=== PATIENT | female | born 1990 | race Caucasian/White ===

== ENCOUNTER → 2021-08-21 15:14 | Outpatient (BNVA) | payer MEDICAID, SELFPAY | PROVIDERS: Family Provider Nurse Practitioner; PCP Nurse Practitioner; Visit Provider Nurse Practitioner | DX: I10 Essential (primary) hypertension (principal); M10.9 Gout, unspecified; E04.9 Nontoxic goiter, unspecified | CPT/HCPCS: 80053; 80061; 84443; 84550 ==

== ENCOUNTER 2021-08-24 14:27 | Emergency (ER) | payer MEDICAID, SELFPAY ==
[2021-08-24] VITALS (7 sets, daily range): BP systolic 121–144; BP diastolic 70–87; PULSE 87–116; RESP 16–20; TEMP 37–37.9; O2SAT 94–98; BMI 42.0
--- NOTE | 2021-08-24 03:22 | XRR_ITS ---
PROCEDURE INFORMATION: Exam: XR Chest Exam date and time: 08/24/2021 3:22 AM Age: 31 years old Clinical indication: Patient HX: Fever. Maliase. TECHNIQUE: Imaging protocol: XR of the chest. Views: 1 view. COMPARISON: CT abdomen pelvis w con* [id number] 09/24/2019 8:45 PM FINDINGS: Lungs: Unremarkable. No consolidation. Pleural spaces: Unremarkable. No pleural effusion. No pneumothorax. Heart/Mediastinum: Unremarkable. No cardiomegaly. Bones/joints: Unremarkable. XR/XR chest 1V portable [id number] IMPRESSION: No acute findings. Radiation Dose CTDIVOL = (mGy): DLP = (mGy-cm)
[2021-08-24] MEDS: acetaminophen 325 mg Tablet 650 MG PO (15:38)
[2021-08-24] MEDS: sodium chloride 0.9% 1,000 ML 999 ML IV ×2 (15:39→18:15)
[2021-08-24 15:41] LABS: Basophils % 0.3 %; Eosinophils % 0.3 %; Hematocrit 41.9 % (37.0-47.0); Hemoglobin 13.6 g/dL (11.5-15.3); Lymphocytes # 1.6 10^3/uL (0.8-4.8); Lymphocytes % 20.1 %; Mean Corpuscular HGB Conc 32.5 g/dL (30.0-36.0); Mean Corpuscular Hemoglobin 28.3 pg (28.0-34.0); Mean Corpuscular Volume 87.3 fl (81-99); Mean Platelet Volume 9.3 fL (7.4-10.4); Monocytes # 0.3 10^3/uL (0.2-0.9); Neutrophils # 5.78 10^3/uL (1.8-7.7); Neutrophils % 74.9 %; Nucleated Red Blood Cells % 0 %; Platelet Count 301 10^3/cmm (130-400); Red Cell Distribution Width 14.3 % (12.1-15.1); White Blood Count 7.7 10^3/uL (4.0-10.0)
[2021-08-24 16:01] LABS: SARS Covid-2 Antigen Negative (Negative)
[2021-08-24 16:09] LABS: Alanine Aminotransferase 24 U/L (0-33); Albumin Level 4.3 g/dL (3.5-5.2); Alkaline Phosphatase 35 IU/L (35-105); Anion Gap 15.9 (5-19); Aspartate Amino Transferase 17 U/L (0-32); Blood Urea Nitrogen 9 mg/dL (6-20); C Reactive Protein 45.6 mg/L (0.0-4.9); Calcium 8.9 mg/dL (8.5-10.5); Carbon Dioxide 25 mmol/L (22-29); Chloride 99 mmol/L (98-107); Globulin 3.3 g/dL (1.3-4.6); Glomerular Filtration Rate 96.4 mL/min (90-130); Glucose 94 mg/dL (65-115); Osmolality Calculated 280 mOsm/kg (285-295); Potassium 3.9 mmol/L (3.5-5.1); Sodium 136 mmol/L (136-145); Total Bilirubin 0.3 mg/dL (0.15-1.2); Total Protein 7.6 g/dL (6.6-8.7)
--- NOTE | 2021-08-24 16:56 | W.ED.GENADLT ---
Documented by User: Jeannie Jim MD 08/24/21 18:53 HPI - General Adult General: Chief complaint: General Medical Stated complaint: HEAD FEELS LIKE FLOATING,EYE PAIN:NEW MED FRI Time Seen by Provider: 08/24/21 15:14 Source: patient Mode of arrival: ambulatory Limitations: no limitations History of Present Illness: HPI narrative: fever, body aches, chills, headache, eye pain , light headed since yesterday She was started on Valsartan in the last 3 days for HTN. Started having a fever last night. No sick contacts No recent outdoor activity or known tick bites. Denies urinary symptoms no rash no upper resp symptoms Associated symptoms: Reports headache(s); Deny chest pain, confusion, diaphoresis, dyspnea, nausea, rash, palpitations, syncope or vomiting Review of Systems General: Reports: 10 or more systems reviewed and unremarkable except in HPI and below Const: Reports: fever(s), chills, body aches and fatigue; Denies: change in weight, night sweats or diaphoresis Eyes: Reports: eye discomfort; Denies: change in vision, blurry vision, blind spots, photophobia, eye discharge or eye redness ENMT: Denies: throat pain, hoarseness, oral sores, ear or mastoid pain, tinnitus, disequilibrium, nasal congestion, post nasal drip or sinus pain Card: Reports: lightheadedness; Denies: chest pain, palpitations, irregular heart rhythm or syncope Resp: Denies: dyspnea, productive cough or wheezing GI: Denies: abdominal pain, nausea or vomiting : Denies: flank pain, difficulty voiding, dysuria or urinary frequency Musc: Reports: joint pain; Denies: neck pain, joint stiffness, limited range of motion, muscle cramps or muscle weakness Skin/Breast: Denies: rash, pruritus or erythema Neuro: Reports: headache(s) and dizziness; Denies: numbness in extremities, weakness in extremities, sensory changes, lack of coordination, frequent falls, confusion, behavioral changes, Slurred speech present, difficulty communicating thoughts or involuntary movements Psych: Denies: anxiety, depression or mood swings Endo: Denies: polyuria, polydipsia or tired all the time Miguel A/Lymph: Denies: easy bruising or easy bleeding All/Imm: Denies: throat swelling, tongue swelling or facial swelling PFSH ED PFSH: Medical History (Updated 08/24/21 @ 18:28 by Jeannie Jim MD) Essential hypertension Gestational diabetes mellitus Surgical History (Updated 08/21/21 @ 15:11 by MARTA Tucker) History of bilateral ligation of fallopian tubes 2014 Hx of section 2010, 2012, 2014 Hx of laparoscopy 2007 ovarian cyst Family History Grandmother Diabetes Denies family history of Clotting disorder Bleeding disorder Cancer Social History Smoking and tobacco status: current every day smoker cigarettes Packs smoked per day: 0.5 Years cigarettes smoked: 20 Second hand smoke exposure: No Smoking risk assessment/counseling performed?: Yes Alcohol intake: never Desire information about alcohol rehabilitation?: No Counseling given: No Desire information about substance/drug rehabilitation?: No Counseling given: No Adopted: No Caregiver/support person: No Lives independently: Yes Household members: children Housing: House Marital status: service: No Current occupational status: unemployed History of recent travel: No Current gender identity: Female Special doreen needs: No Agree to transfusion: Yes Female Reproductive History: Para: 3 Physical Exam Const: COMMON NORMALS: no acute distress, healthy appearing and alert EXAM LIMITATIONS: altered mental status GENERAL APPEARANCE: cooperative and well kempt; not in distress, not anxious, not lethargic and not ill appearing NUTRITIONAL APPEARANCE: overweight ORIENTATION/CONSCIOUSNESS: Yes awake, Yes oriented to person, Yes oriented to place and Yes oriented to time; not lethargic HENMT: COMMON NORMALS: normocephalic and atraumatic HEAD & SCALP: normocephalic and atraumatic FACE & SINUS: normal facial exam, sinuses nontender and face symmetric MOUTH: Normal oral and palatal mucosa present Eye: COMMON NORMALS: Equal, round and reactive pupils present, EOMs intact bilaterally, conjunctivae normal and no scleral icterus GENERAL EYE: appearance normal, both eyes and all related structures ALIGNMENT: Yes alignment normal PERIORBITAL: periorbital findings normal EYELID: eyelids normal CONJUNCTIVA: Yes conjunctivae normal SCLERA: sclerae normal PUPIL: Yes Equal, round and reactive pupils present EOM: Yes EOM abnormal Neck/C-Spine: COMMON NORMALS: no JVD GENERAL: Yes trachea midline, No anterior neck swelling, No lymphadenopathy, No tender, No submandibular swelling and No Meningeal signs present CERVICAL SPINE: Yes cervical ROM normal Lymph: LYMPHATIC: no lymphadenopathy noted Resp: COMMON NORMALS: normal respiratory effort, No retractions and No use of accessory muscles EFFORT & INSPECTION: Yes able to speak in complete sentences Cardio: COMMON NORMALS: no JVD and regular rhythm RATE: tachycardic RHYTHM: regular rhythm GI: COMMON NORMALS: Soft to palpation INSPECTION: Yes normal to inspection, No Abdominal wall edema and No abdominal distension PALPATION: Yes Soft to palpation and No Tenderness to palpation present (GI) Extremity: GENERAL: Yes normal exam except as noted Neuro: ISRA COMA SCALE: document GCS findings [place] coma scale eye opening: Spontaneous Isra coma scale verbal response: Orientated Isra coma scale motor response: Obey commands Isra coma scale total score: 15 SENSORIUM/ORIENTATION: Yes alert, Yes oriented to person, Yes oriented to place, Yes oriented to time and No lethargic SPEECH: speech normal Psych: COMMON NORMALS: mental status grossly normal, Normal thought process present, cooperative, normal affect, speech normal and activity/motor behavior normal APPEARANCE: Yes well kempt SPEECH: Yes normal speech THOUGHT PROCESS: Normal thought process present Skin: COMMON NORMALS: no rashes or lesions noted, turgor normal, no jaundice, no petechiae and no mottling GENERAL SKIN EXAM: no rashes or lesions noted and turgor normal Course Vital Signs: Vital signs: Vital Signs Temperature 98.6 F 08/24/21 19:00 Pulse Rate 98 08/24/21 19:03 Respiratory Rate 18 08/24/21 19:03 Blood Pressure 130/87 08/24/21 19:03 Pulse Oximetry 97 08/24/21 19:03 MDM - General Adult MDM Narrative: Medical decision making narrative: 31 year old with dizziness, headache, fever, general malaise and flu like symptoms for 1 day temp 100.4 on arrival, No meningeal signs Normal CBC and CMP, CRP slightly elevated in the 40s. COVID-19 negative Tick panel sent if UA negative, will plan to treat empirically for tickborne illness until results are back. Differential Diagnosis: Differential Diagnosis: sepsis, tickborne illness, meningitis, COVID-19, viral syndrome, Toxic shock syndrome, medication reaction, Medical Records: Attestation: I reviewed the patient's medical records. Lab Data: Attestation: I reviewed the patient's lab results. Labs: Lab Results 08/24/21 08/24/21 08/24/21 15:30 15:30 15:30 WBC 7.7 10^3/uL 10^3/ uL (4.0-10.0) RBC 4.80 10^6/uL 10^6 /uL (4.1-5.3) Hgb 13.6 g/dL g/dL (11.5-15.3) Hct 41.9 % % (37.0-47.0) MCV 87.3 fl fl (81-99) MCH 28.3 pg pg (28.0-34.0) MCHC 32.5 g/dL g/dL (30.0-36.0) RDW 14.3 % % (12.1-15.1) Plt Count 301 10^3/cmm 10^3 /cmm (130-400) MPV 9.3 fL fL (7.4-10.4) Neut % (Auto) 74.9 % % Lymph % (Auto) 20.1 % % Spencer % (Auto) 4.0 % % Eos % (Auto) 0.3 % % Baso % (Auto) 0.3 % % Neut # (Auto) 5.78 10^3/uL 10^3 /uL (1.8-7.7) Lymph # (Auto) 1.6 10^3/uL 10^3/ uL (0.8-4.8) Spencer # (Auto) 0.3 10^3/uL 10^3/ uL (0.2-0.9) Eos # (Auto) 0.0 10^3/uL 10^3/ uL (0.0-0.8) Baso # (Auto) 0.0 10^3/uL 10^3/ uL (0.0-0.1) Nucleated RBC % (a uto) 0 % % Nucleated RBCs # 0.0 /100WBC /100W BC Sodium 136 mmol/L mmol/L (136-145) Potassium 3.9 mmol/L mmol/L (3.5-5.1) Chloride 99 mmol/L mmol/L (98-107) Carbon Dioxide 25 mmol/L mmol/L (22-29) Anion Gap 15.9 (5-19) BUN 9 mg/dL mg/dL (6-20) Creatinine 0.7 mg/dL mg/dL (0.5-0.9) GFR Calculation 96.4 mL/min mL/mi n (90-130) Glucose 94 mg/dL mg/dL (65-115) Calculated Osmolal ity 280 mOsm/kg L mOs m/kg (285-295) Calcium 8.9 mg/dL mg/dL (8.5-10.5) Total Bilirubin 0.3 mg/dL mg/dL (0.15-1.2) AST 17 U/L U/L (0-32) ALT 24 U/L U/L (0-33) Alkaline Phosphata se 35 IU/L IU/L (35-105) C-Reactive Protein 45.6 mg/L H mg/L (0.0-4.9) Total Protein 7.6 g/dL g/dL (6.6-8.7) Albumin 4.3 g/dL g/dL (3.5-5.2) Globulin 3.3 g/dL g/dL (1.3-4.6) Urine Color Urine Appearance Urine pH Ur Specific Gravit y Urine Protein Urine Glucose (UA) Urine Ketones Urine Blood Urine Nitrate Urine Bilirubin Urine Urobilinogen Ur Leukocyte Camilla ase SARS-CoV-2 Ag (Rap id) Negative (Negative) 08/24/21 18:16 WBC RBC Hgb Hct MCV MCH MCHC RDW Plt Count MPV Neut % (Auto) Lymph % (Auto) Spencer % (Auto) Eos % (Auto) Baso % (Auto) Neut # (Auto) Lymph # (Auto) Spencer # (Auto) Eos # (Auto) Baso # (Auto) Nucleated RBC % (a uto) Nucleated RBCs # Sodium Potassium Chloride Carbon Dioxide Anion Gap BUN Creatinine GFR Calculation Glucose Calculated Osmolal ity Calcium Total Bilirubin AST ALT Alkaline Phosphata se C-Reactive Protein Total Protein Albumin Globulin Urine Color Yellow (Yellow) Urine Appearance Clear (CLEAR) Urine pH 5 (5-7) Ur Specific Gravit y 1.005 (1.005-1.030) Urine Protein Neg (Negative) Urine Glucose (UA) Norm (Normal) Urine Ketones 1+ H (Negative) Urine Blood Neg (Negative) Urine Nitrate Negative (Negative) Urine Bilirubin Neg (Negative) Urine Urobilinogen Norm mg/dL mg/dL (Negative) Ur Leukocyte Camilla ase Negative (Negative) SARS-CoV-2 Ag (Rap id) Discharge Plan Discharge Patient Disposition: Home Clinical Impression: Fever Qualifiers: Fever type: unspecified Qualified Code(s): R50.9 - Fever, unspecified Condition: Stable Prescriptions: New doxycycline hyclate 100 mg capsule 100 mg PO BID 10 Days Qty: 20 RF: 0 No Action valsartan [Diovan] 80 mg tablet 80 mg PO DAILY Qty: 30 RF: 0 Discharge Orders: Discharge ED (Routine); Ordered 08/24/21 Ordered By: Young Serna Referrals: Anuj Rick FNP-C [Primary Care Provider] - 1-3 days Discharge Diet: Advance as tolerated Discharge Activity: Increase activity as tolerated Patient Instructions: Fever in Adults (ED) Activity Restrictions/Additional Instructions: Antibiotics as directed until your tick panel comes back negative. You should quarantine at home until the final results of your COVID-19 test are returned and negative. Return for continued fever despite antibiotics, vomiting liquids or medications, shortness of breath, any other concerning symptoms. Coding Level of Care Code ED Optical Effects Layout Person for Chg Fwd Exam Comprehensive Documented by User: Young Serna DO 08/24/21 19:17 HPI - General Adult General: Chief complaint: General Medical Stated complaint: HEAD FEELS LIKE FLOATING,EYE PAIN:NEW MED FRI Time Seen by Provider: 08/24/21 15:14 PFSH ED PFSH: Medical History (Updated 08/24/21 @ 18:28 by Jeannie Jim MD) Essential hypertension Gestational diabetes mellitus Surgical History (Updated 08/21/21 @ 15:11 by MARTA Tucker) History of bilateral ligation of fallopian tubes 2014 Hx of section 2010, 2012, 2014 Hx of laparoscopy 2007 ovarian cyst Family History Grandmother Diabetes Denies family history of Clotting disorder Bleeding disorder Cancer Social History Smoking and tobacco status: current every day smoker cigarettes Packs smoked per day: 0.5 Years cigarettes smoked: 20 Second hand smoke exposure: No Smoking risk assessment/counseling performed?: Yes Alcohol intake: never Desire information about alcohol rehabilitation?: No Counseling given: No Desire information about substance/drug rehabilitation?: No Counseling given: No Adopted: No Caregiver/support person: No Lives independently: Yes Household members: children Housing: House Marital status: service: No Current occupational status: unemployed History of recent travel: No Current gender identity: Female Special doreen needs: No Agree to transfusion: Yes Course Vital Signs: Vital signs: Vital Signs Temperature 98.6 F 08/24/21 19:00 Pulse Rate 98 08/24/21 19:03 Respiratory Rate 18 08/24/21 19:03 Blood Pressure 130/87 08/24/21 19:03 Pulse Oximetry 97 08/24/21 19:03 MDM - General Adult MDM Narrative: Medical decision making narrative: 31-year-old female checked out to me by Dr. Jim at shift change. This is a fever, essentially of unknown origin. Her urinalysis is negative as well. Chest x-ray is negative. Laboratory is benign save mild to moderate elevation in CRP. COVID-19 PCR will be completed, as she is only had a fever for a day, and could be missed by rapid testing. We will cover with doxycycline for tickborne illness as this is a concern. She knows to return for worsening symptoms Lab Data: Labs: Lab Results 08/24/21 08/24/21 08/24/21 15:30 15:30 15:30 WBC 7.7 10^3/uL 10^3/ uL (4.0-10.0) RBC 4.80 10^6/uL 10^6 /uL (4.1-5.3) Hgb 13.6 g/dL g/dL (11.5-15.3) Hct 41.9 % % (37.0-47.0) MCV 87.3 fl fl (81-99) MCH 28.3 pg pg (28.0-34.0) MCHC 32.5 g/dL g/dL (30.0-36.0) RDW 14.3 % % (12.1-15.1) Plt Count 301 10^3/cmm 10^3 /cmm (130-400) MPV 9.3 fL fL (7.4-10.4) Neut % (Auto) 74.9 % % Lymph % (Auto) 20.1 % % Spencer % (Auto) 4.0 % % Eos % (Auto) 0.3 % % Baso % (Auto) 0.3 % % Neut # (Auto) 5.78 10^3/uL 10^3 /uL (1.8-7.7) Lymph # (Auto) 1.6 10^3/uL 10^3/ uL (0.8-4.8) Spencer # (Auto) 0.3 10^3/uL 10^3/ uL (0.2-0.9) Eos # (Auto) 0.0 10^3/uL 10^3/ uL (0.0-0.8) Baso # (Auto) 0.0 10^3/uL 10^3/ uL (0.0-0.1) Nucleated RBC % (a uto) 0 % % Nucleated RBCs # 0.0 /100WBC /100W BC Sodium 136 mmol/L mmol/L (136-145) Potassium 3.9 mmol/L mmol/L (3.5-5.1) Chloride 99 mmol/L mmol/L (98-107) Carbon Dioxide 25 mmol/L mmol/L (22-29) Anion Gap 15.9 (5-19) BUN 9 mg/dL mg/dL (6-20) Creatinine 0.7 mg/dL mg/dL (0.5-0.9) GFR Calculation 96.4 mL/min mL/mi n (90-130) Glucose 94 mg/dL mg/dL (65-115) Calculated Osmolal ity 280 mOsm/kg L mOs m/kg (285-295) Calcium 8.9 mg/dL mg/dL (8.5-10.5) Total Bilirubin 0.3 mg/dL mg/dL (0.15-1.2) AST 17 U/L U/L (0-32) ALT 24 U/L U/L (0-33) Alkaline Phosphata se 35 IU/L IU/L (35-105) C-Reactive Protein 45.6 mg/L H mg/L (0.0-4.9) Total Protein 7.6 g/dL g/dL (6.6-8.7) Albumin 4.3 g/dL g/dL (3.5-5.2) Globulin 3.3 g/dL g/dL (1.3-4.6) Urine Color Urine Appearance Urine pH Ur Specific Gravit y Urine Protein Urine Glucose (UA) Urine Ketones Urine Blood Urine Nitrate Urine Bilirubin Urine Urobilinogen Ur Leukocyte Camilla ase SARS-CoV-2 Ag (Rap id) Negative (Negative) 08/24/21 18:16 WBC RBC Hgb Hct MCV MCH MCHC RDW Plt Count MPV Neut % (Auto) Lymph % (Auto) Spencer % (Auto) Eos % (Auto) Baso % (Auto) Neut # (Auto) Lymph # (Auto) Spencer # (Auto) Eos # (Auto) Baso # (Auto) Nucleated RBC % (a uto) Nucleated RBCs # Sodium Potassium Chloride Carbon Dioxide Anion Gap BUN Creatinine GFR Calculation Glucose Calculated Osmolal ity Calcium Total Bilirubin AST ALT Alkaline Phosphata se C-Reactive Protein Total Protein Albumin Globulin Urine Color Yellow (Yellow) Urine Appearance Clear (CLEAR) Urine pH 5 (5-7) Ur Specific Gravit y 1.005 (1.005-1.030) Urine Protein Neg (Negative) Urine Glucose (UA) Norm (Normal) Urine Ketones 1+ H (Negative) Urine Blood Neg (Negative) Urine Nitrate Negative (Negative) Urine Bilirubin Neg (Negative) Urine Urobilinogen Norm mg/dL mg/dL (Negative) Ur Leukocyte Camilla ase Negative (Negative) SARS-CoV-2 Ag (Rap id) Discharge Plan Discharge Patient Disposition: Home Clinical Impression: Fever Qualifiers: Fever type: unspecified Qualified Code(s): R50.9 - Fever, unspecified Condition: Stable Prescriptions: New doxycycline hyclate 100 mg capsule 100 mg PO BID 10 Days Qty: 20 RF: 0 No Action valsartan [Diovan] 80 mg tablet 80 mg PO DAILY Qty: 30 RF: 0 Discharge Orders: Discharge ED (Routine); Ordered 08/24/21 Ordered By: Young Serna Referrals: Anuj Rick FNP-C [Primary Care Provider] - 1-3 days Discharge Diet: Advance as tolerated Discharge Activity: Increase activity as tolerated Patient Instructions: Fever in Adults (ED) Activity Restrictions/Additional Instructions: Antibiotics as directed until your tick panel comes back negative. You should quarantine at home until the final results of your COVID-19 test are returned and negative. Return for continued fever despite antibiotics, vomiting liquids or medications, shortness of breath, any other concerning symptoms. Coding Level of Care Code ED Optical Effects Layout Person for [place] Exam Comprehensive
[2021-08-24 18:21] LABS: Add Urine Microscopic? NO; Charge for UA Resulting for Rev
[2021-08-24 18:56] LABS: Bilirubin Urine Neg (Negative); Blood Urine Neg (Negative); Glucose Urine UA Norm (Normal); Ketones Urine 1+ (Negative); Leukocyte Esterase Urine Negative (Negative); Nitrate Urine Negative (Negative); Protein Urine Neg (Negative); Specific Gravity, Urine 1.005 (1.005-1.030); Urine Appearance Clear (CLEAR); Urine Color Yellow (Yellow); Urobilinogen Urine Norm (Negative); pH Urine 5 (5-7)
[2021-08-26 08:37] LABS: Coronavirus Test Green County Not Detected
[2021-08-26 13:18] LABS: Lyme AB Screen <0.90 index
--- NOTE | 2021-08-26 16:37 | PC.NURSE ---
Left Voice mail.
[2021-08-27 16:28] LABS: E. Chaffeensis AB IGG <1:64; E. Chaffeensis AB IGM <1:20
[2021-08-27 17:18] LABS: RMSF IGG NOT DETECTED; RMSF IGM NOT DETECTED
== END 2021-08-24 19:45 | disposition home or self-care (01) ==
PROVIDERS: Family Medicine; Emergency Provider Emergency Medicine; PCP Nurse Practitioner
DX: R51.9 Headache, unspecified (principal); R50.9 Fever, unspecified; F17.210 Nicotine dependence, cigarettes, uncomplicated; I10 Essential (primary) hypertension
CPT/HCPCS: 71045; 80053; 81003; 85025; 86140; 86618; 86666; 86757; 87426; 87635; 96360; 96361; 99283; J7030

== ENCOUNTER 2021-11-12 10:00 | Outpatient (CLI) | payer OTHER, MEDICAID, SELFPAY ==
--- NOTE | 2021-11-12 10:34 | XR_ITS ---
WS: [id number] LUMBAR SPINE: 3 VIEWS TECHNIQUE: AP, lateral and L5-S1 spot. HISTORY: M54.42 - Lumbago with sciatica, left side COMPARISON: None available. Lumbar vertebra are normally aligned. Small osteophytes along the endplates of the vertebral bodies. No loss of disc space or vertebral body height. Slight widening and possible early erosions involving the SI joints. Prior cholecystectomy. XR/XR lumbar spine 2-3V* [id number] IMPRESSION: 1. Very slight widening of the SI joints bilaterally. Early findings of sacroi liitis should be considered. 2. No lumbar spine fracture.
--- NOTE | 2021-11-12 10:34 | XR_ITS ---
WS: [id number] LEFT HIP HISTORY: M25.552 - Pain in left hip COMPARISON: None available. LEFT hip: No acute fracture or dislocation. . Slight narrowing of the hip joint with an osteophyte al christina the lateral superior acetabulum. No subchondral cystic changes. Visualized pubic rami are normal. XR/XR hip LT 2-3V wo/w pel* [id number] IMPRESSION: 1. No hip fracture. 2. Very minimal osteophytic ridging upon the superior acetabulum.
== END 2021-11-12 10:01 | disposition home or self-care (01) ==
PROVIDERS: PCP Nurse Practitioner; Visit Provider Nurse Practitioner Family
DX: M54.42 Lumbago with sciatica, left side (principal); M25.552 Pain in left hip
CPT/HCPCS: 72100; 73502

== ENCOUNTER → 2022-08-13 15:28 | Outpatient (BNVA) | payer MEDICAID, SELFPAY | PROVIDERS: PCP Nurse Practitioner; Visit Provider Nurse Practitioner | DX: R73.9 Hyperglycemia, unspecified (principal); I10 Essential (primary) hypertension; E78.2 Mixed hyperlipidemia; E66.01 Morbid (severe) obesity due to excess calories; L30.9 Dermatitis, unspecified | CPT/HCPCS: 80053; 80061; 81000; 83036; 84443; 85025 ==

== ENCOUNTER → 2023-05-11 09:50 | Outpatient (BNVA) | payer MEDICAID, SELFPAY | PROVIDERS: PCP Nurse Practitioner; Visit Provider Nurse Practitioner Family | DX: R73.03 Prediabetes (principal); M54.9 Dorsalgia, unspecified | CPT/HCPCS: 80053; 80061; 82306; 82607; 83036; 83735; 84439; 84443; 85025 ==

== ENCOUNTER → 2023-05-26 10:53 | Outpatient (BNVA) | payer MEDICAID, SELFPAY | PROVIDERS: PCP Nurse Practitioner; Visit Provider Nurse Practitioner Family | DX: M54.6 Pain in thoracic spine (principal); M54.50 Low back pain, unspecified | CPT/HCPCS: 72072; 72100 ==

== ENCOUNTER 2023-07-28 13:00 | Outpatient (CLI) | payer MEDICAID, SELFPAY | END 2023-07-28 13:01 | disposition home or self-care (01) | LOC: SLEEP 07-29 14:10 | PROVIDERS: PCP Nurse Practitioner; Visit Provider Nurse Practitioner Family | DX: G47.33 Obstructive sleep apnea (adult) (pediatric) (principal); G47.36 Sleep related hypoventilation in conditions classified elsewhere; G47.10 Hypersomnia, unspecified | CPT/HCPCS: G0399 ==

== ENCOUNTER → 2023-08-05 10:00 | Outpatient (BNVA) | payer MEDICAID, SELFPAY | PROVIDERS: PCP Nurse Practitioner; Visit Provider Nurse Practitioner Family | DX: I10 Essential (primary) hypertension (principal); M79.10 Myalgia, unspecified site; E78.2 Mixed hyperlipidemia; M54.9 Dorsalgia, unspecified; E11.69 Type 2 diabetes mellitus with other specified complication; E66.9 Obesity, unspecified; E55.9 Vitamin D deficiency, unspecified; R60.9 Edema, unspecified | CPT/HCPCS: 80053; 80061; 82306; 83036; 83735; 83880; 84443; 85025 ==

== ENCOUNTER 2023-08-18 08:55 | Outpatient (CLI) | payer MEDICAID, SELFPAY ==
--- NOTE | 2023-08-18 09:30 | USCV_ITS ---
Argentina Rojas Age: 33 Gender: F : 1990 Exam Date: 08/18/2023 09:18 Ordering Phys: Louise Rodarte [employer] SUPERVISOR [employer] SUPERVISOR Technologist: CT [place] [facility] [place]: HISTORY: PROCEDURES: FINDINGS: No evidence of DVT seen in any vessel visualized at this time. No significant venous reflux Normal caliber veins bilaterally CONCLUSIONS 1. No evidence of DVT in the above-mentioned identifiable veins. 2. No significant venous reflux either in the deep or in the superficial veins. 3. Normal caliber veins bilaterally Dr Rich Schmidt MD [facility] (Electronically Signed) Final Date: 20 August 2023 11:26 S
== END 2023-08-18 08:56 | disposition home or self-care (01) ==
LOC: RAD 08:56
PROVIDERS: PCP Nurse Practitioner; Visit Provider Nurse Practitioner Family
DX: R60.9 Edema, unspecified (principal)
CPT/HCPCS: 93970

== ENCOUNTER → 2023-08-23 14:02 | Outpatient (BNVA) | payer MEDICAID, SELFPAY | PROVIDERS: PCP Nurse Practitioner Family; Visit Provider Nurse Practitioner Family | DX: E11.69 Type 2 diabetes mellitus with other specified complication (principal); E66.9 Obesity, unspecified | CPT/HCPCS: 83036 ==

== ENCOUNTER → 2024-02-08 09:22 | Outpatient (BNVA) | payer MEDICAID, SELFPAY | PROVIDERS: PCP Nurse Practitioner Family; Visit Provider Nurse Practitioner Family | DX: I10 Essential (primary) hypertension (principal); E11.69 Type 2 diabetes mellitus with other specified complication; E66.9 Obesity, unspecified; E55.9 Vitamin D deficiency, unspecified | CPT/HCPCS: 80053; 80061; 82306; 83036; 83735; 85025 ==

== ENCOUNTER → 2024-06-01 10:59 | Outpatient (BNVA) | payer MEDICAID, SELFPAY | PROVIDERS: PCP Nurse Practitioner Family; Visit Provider Family Medicine | DX: J02.9 Acute pharyngitis, unspecified (principal) | CPT/HCPCS: 87880 ==

== ENCOUNTER → 2024-08-28 14:21 | Outpatient (BNVA) | payer MEDICAID, SELFPAY | PROVIDERS: PCP Nurse Practitioner Family; Visit Provider Nurse Practitioner Family | DX: E55.9 Vitamin D deficiency, unspecified (principal); M25.561 Pain in right knee; E11.65 Type 2 diabetes mellitus with hyperglycemia; E11.69 Type 2 diabetes mellitus with other specified complication; E66.9 Obesity, unspecified; M25.761 Osteophyte, right knee | CPT/HCPCS: 73562; 80053; 80061; 82306; 82607; 83036; 83735; 84443; 85025; 85651; 86038; 86140; 86200; 86431 ==

== ENCOUNTER 2025-06-14 21:49 | Emergency (ER) | payer SELFPAY ==
[2025-06-14 21:57] VITALS: BP 175/93; PULSE 97; RESP 17; TEMP 36.8; O2SAT 98; BMI 46.9
[2025-06-14 23:56] LABS: Hematocrit 30.0 % (36-47); Hemoglobin 8.80 g/dL (11.27-16.99); Mean Corpuscular HGB Conc 29.3 g/dL (30-55); Mean Corpuscular Hemoglobin 21.8 pg (27-33); Mean Corpuscular Volume 74.3 fl (85-98); Nucleated Red Blood Cells % 0 %; Platelet Count 307 10^3/cmm (157-399); Red Blood Count 4.04 10^6/uL (3.85-5.65); White Blood Count 8.45 10^3/uL (3.29-11.43)
[2025-06-15 00:13] LABS: Alanine Aminotransferase 36 U/L (0-33); Albumin Level 4.0 g/dL (3.5-5.2); Alkaline Phosphatase 35 U/L (35-105); Anion Gap 18.1 (5-19); Aspartate Amino Transferase 34 U/L (0-32); Blood Urea Nitrogen 18 mg/dL (6-20); Calcium 9.7 mg/dL (8.5-10.5); Carbon Dioxide 22 mmol/L (22-29); Chloride 102 mmol/L (98-107); Creatinine Clr Calc Pharmacy 162.6486; Globulin 3.0 g/dL (1.3-4.6); Glucose 249 mg/dL (65-115); Osmolality Calculated 296 mOsm/kg (285-295); Potassium 4.1 mmol/L (3.5-5.1); Sodium 138 mmol/L (136-145); Total Protein 7.0 g/dL (6.6-8.7)
[2025-06-15 01:00] VITALS: BP 132/77; PULSE 93; RESP 15; O2SAT 96
[2025-06-15 01:05] LABS: Glucose Urine UA 1+ (Normal); Nitrate Urine Negative (Negative); Specific Gravity, Urine 1.030 (1.005-1.030)
[2025-06-15 01:22] LABS: Add Urine Microscopic? YES
[2025-06-15 02:00] VITALS: BP 124/71; PULSE 79; RESP 17; O2SAT 97
[2025-06-15 03:00] VITALS: BP 144/82; PULSE 85; RESP 16; O2SAT 99
--- NOTE | 2025-06-15 03:05 | CTR_ITS ---
PROCEDURE INFORMATION: Exam: CT Head Without Contrast Exam date and time: 06/15/2025 3:15 AM Age: 34 years old Clinical indication: Dizziness and other: Headache; Additional info: Headache, dizziness TECHNIQUE: Imaging protocol: Computed tomography of the head without contrast. Radiation optimization: All CT scans at this facility use at least one of these dose optimization techniques: automated exposure control; mA and/or kV adjustment per patient size (includes targeted exams where dose is matched to clinical indication); or iterative reconstruction. COMPARISON: No relevant prior studies available. RADIATION DOSE METRICS: Total DLP (mGy-cm): 1197.91 FINDINGS: Brain: Normal. No hemorrhage. Unremarkable white matter. No mass effect. Cerebral ventricles: No ventriculomegaly. Paranasal sinuses: Visualized sinuses are unremarkable. No fluid levels. Mastoid air cells: Visualized mastoid air cells are well aerated. Bones: Unremarkable. No acute fracture. Soft tissues: Unremarkable. CT/CT head wo con* [id number] IMPRESSION: There is no evidence of acute intracranial abnormality.
[2025-06-15 04:00] VITALS: BP 118/88; PULSE 72; RESP 18; O2SAT 98
[2025-06-15 05:00] VITALS: BP 113/68; PULSE 92; RESP 17; O2SAT 96
--- NOTE | 2025-06-15 05:42 | ED_ITS ---
HPI - Dizziness 2 General: Chief Complaint: Dizziness Stated Complaint: Dizziness, Headache Time Seen by Provider: 06/15/25 01:40 History of Present Illness: HPI Narrative: 34-yo female with long-standing untreate d HTN presents for acute dizziness that began earlier today. She describes a spinning sensation associated with 7/10 sharp pain at the back of the head/upper neck that worsened with gentle head rotation and provoked nausea. She could not ambulate at home because BP was so high. On ED arrival symptoms had improved: pain 2/10, no current vertigo unless tested. She denies syncope, focal neurologic deficits, recent ear/sinus infection, cough, alcohol use, or tobacco. She recognizes prodromal sensations of elevated BP from prior episodes. No prior stroke or cardiac disease. Related Data Previous Rx's ?Medication ?Instructions ?Recorded auto-titrating c-pap 6-16cm #1 ea 02/08/24 magnesium oxide 800 mg (2 x 400 mg magnesium ) PO 08/04/24 .with evening meal #180 tabs methylprednisolone 4 mg tablets in See Rx Instructions PO PER PKG DIR 08/28/24 a dose pack (Medrol (David)) #21 ea bupropion HCl 150 mg tablet,12 hr 150 mg PO BID #60 ta bs 04/17/25 sustained-release (Wellbutrin SR) dapagliflozin propanediol 10 mg 10 mg PO DAILY #30 tab s 04/17/25 tablet (Farxiga) diclofenac sodium 75 mg 75 mg PO BID PRN pain #60 ta bs 04/17/25 tablet,delayed release escitalopram oxalate 10 mg tablet 10 mg PO DAILY #30 t abs 04/17/25 (Lexapro) omeprazole 20 mg capsule,delayed See Rx Instructions . Route 04/17/25 release .COMPLEX #60 caps rosuvastatin 10 mg tablet (Crestor) 10 mg PO DAILY #30 tabs 04/17/25 tizanidine 4 mg tablet 4 mg PO BID muscle spasticit y #60 04/17/25 tabs valsartan 160 mg tablet (Diovan) 160 mg PO DAILY #30 t abs 04/17/25 Allergies Allergy/AdvReac Type Severity Reaction Status Date / Time No Known Allergies Allergy Verified 06/01/24 10:35 [facility] ED 2 [facility]: Medical History (Updated 06/15/25 @ 05:41 by Jeronimo Eric MD) Type 2 diabetes mellitus Obesity, Class III, BMI 40-49.9 (morbid obesity) Hyperlipidemia, mixed Essential hypertension Gestational diabetes mellitus Surgical History Hx of laparoscopy 2006 ovarian cyst History of bilateral ligation of fallopian tubes 2014 Hx of section 2010, 2012, 2014 Family History Grandmother Diabetes Denies family history of Clotting disorder Bleeding disorder Cancer Social History Smoking and tobacco/nicotine status: never used tobacco/nicotine Second hand smoke exposure: No Alcohol intake: never Substance/Drug Use: unknown Adopted: No Caregiver/support person: No Lives independently: Yes Household members: children Housing: House Marital status: service: No Current occupational status: employed Current occupation: [employer] Do you think of yourself as: Straight/Heterosexual Current gender identity: Female Special doreen needs: No Agree to transfusion: Yes Female Reproductive History: Para: 3 Physical Exam 2 Const: COMMON NORMALS: no acute distress, patient oriented x3 and alert HENMT: COMMON NORMALS: normocephalic and atraumatic HEAD & SCALP: n ormocephalic and atraumatic OTHER: Dizziness previously was worse with head motion but at the time of my exam this has resolved and she is able to move her head vigorously without increase in symptoms. Eye: COMMON NORMALS: Equal, round and reactive pupils present, EOMs intact bilaterally and no scleral icterus PUPIL: Yes Equal, round and reactive pupils present Resp: COMMON NORMALS: normal respiratory effort and No retractions Cardio: COMMON NORMALS: regular rate, regular rhythm and No murmurs present (Cardio) RATE: regular rate RHYTHM: regular rhythm GI: COMMON NORMALS: Normal to inspection, nondistended, normoactive bowel sounds present, Soft to palpation and non-tender PALPATION: Yes Soft to palpation Neuro: COMMON NORMALS: patient oriented x3 SENSORIUM/ORIENTATION: Yes alert Skin: COMMON NORMALS: no rashes or lesions noted GENERAL SKIN EXAM: no rashes or lesions noted Course 2 Vital Signs: Vital signs: Vital Signs Temperature 98.3 F 06/14/25 21:57 Pulse Rate 72 06/15/25 04:00 Respiratory Rate 18 06/15/25 04:00 Blood Pressure 118/88 06/15/25 04:00 Pulse Oximetry 98 06/15/25 04:00 Oxygen Delivery Me thod Room Air 06/14/25 21:57 MDM - Dizziness Medical Decision Making In summary, patient is a well-appearing 34-year-old female seen for an episode of vertigo and headache, both of which have resolved spontaneously. CT brain shows nothing acute. Labs are unremarkable. She will be discharged in stable and improved condition follow-up with primary care as needed. Lab Data 06/14/25 23:46 06/14/25 23:[address] 06/15/25 03:05 IMPRESSION: There is no evidence of acute intracranial abnormality. Laboratory Results WBC 8.45 10^3/uL (3.29-11.43) 06/14/25 23:46 RBC 4.04 10^6/uL (3.85-5.65) 06/14/25 23:46 Hgb 8.80 g/dL (11.27-16.99) L 06/14/25 23:46 Hct 30.0 % (36-47) L 06/14/25 23:46 MCV 74.3 fl (85-98) L 06/14/25 23:46 MCH 21.8 pg (27-33) L 06/14/25 23:46 MCHC 29.3 g/dL (30-55) L 06/14/25 23:46 RDW 17.3 % (12.1-15.1) H 06/14/25 23:46 Plt Count 307 10^3/cmm (157-399) 06/14/25 23:46 MPV 9.1 fL (7.4-10.4) 06/14/25 23:46 Neut % (Auto) 57.0 % 06/14/25 23:46 Lymph % (Auto) 33.4 % 06/14/25 23:46 [place] % (Auto) 5.7 % 06/14/25 23:46 Eos % (Auto) 2.8 % 06/14/25 23:46 Baso % (Auto) 0.4 % 06/14/25 23:46 Neut # (Auto) 4.82 10^3/uL (1.8-7.7) 06/14/25 23:46 Lymph # (Auto) 2.8 10^3/uL (0.8-4.8) 06/14/25 23:46 [place] # (Auto) 0.5 10^3/uL (0.2-0.9) 06/14/25 23:46 Eos # (Auto) 0.2 10^3/uL (0.0-0.8) 06/14/25 23:46 Baso # (Auto) 0.0 10^3/uL (0.0-0.1) 06/14/25 23:46 Nucleated RBC % (auto) 0 % 06/14/25 23:46 Nucleated RBCs # 0.0 /100WBC 06/14/25 23:46 Sodium 138 mmol/L (136-145) 06/14/25 23:46 Potassium 4.1 mmol/L (3.5-5.1) 06/14/25 23:46 Chloride 102 mmol/L (98-107) 06/14/25 23:46 Carbon Dioxide 22 mmol/L (22-29) 06/14/25 23:46 Anion Gap 18.1 (5-19) 06/14/25 23:46 BUN 18 mg/dL (6-20) 06/14/25 23:46 Creatinine 0.6 mg/dL (0.5-0.9) 06/14/25 23:46 GFR Calculation 113.1 mL/min (90-130) 06/14/25 23:46 Glucose 249 mg/dL (65-115) H 06/14/25 23:46 Calculated Osmolality 296 mOsm/kg (285-295) H 06/14/25 23:46 Calcium 9.7 mg/dL (8.5-10.5) 06/14/25 23:46 Total Bilirubin 0.2 mg/dL (0.15-1.2) 06/14/25 23:46 AST 34 U/L (0-32) H 06/14/25 23:46 ALT 36 U/L (0-33) H 06/14/25 23:46 Alkaline Phosphatase 35 U/L (35-105) 06/14/25 23:46 Total Protein 7.0 g/dL (6.6-8.7) 06/14/25 23:46 Albumin 4.0 g/dL (3.5-5.2) 06/14/25 23:46 Globulin 3.0 g/dL (1.3-4.6) 06/14/25 23:46 Urine Color Yellow (Yellow) 06/15/25 00:58 Urine Appearance Cloudy (CLEAR) A 06/15/25 00:58 Urine pH 5.0 (5-7) 06/15/25 00:58 Ur Specific [place] 1.030 (1.005-1.030) 06/15/25 00:58 Urine Protein 2+ (Negative) A 06/15/25 00:58 Urine Glucose (UA) 1+ (Normal) H 06/15/25 00:58 Urine Ketones Trace (Negative) 06/15/25 00:58 Urine Blood Negative (Negative) 06/15/25 00:58 Urine Nitrate Negative (Negative) 06/15/25 00:58 Urine Bilirubin Negative (Negative) 06/15/25 00:58 Urine Urobilinogen 1.0 mg/dL (Negative) 06/15/25 00:58 Ur Leukocyte Esterase Negative (Negative) 06/15/25 00:58 Urine RBC 0-4 /hpf (0-2) H 06/15/25 00:58 Urine WBC 0-4 /hpf (0-5) H 06/15/25 00:58 Ur Squamous Epith Cells 10-15 /hpf (0-5) H 06/15/25 00:58 Amorphous Sediment Not Reportable 06/15/25 00:58 Urine Bacteria 1+ /hpf (NONE) H 06/15/25 00:58 Urine Mucus 1+ /hpf 06/15/25 00:58 All radiology interpretation(s) finalized by discharge Discharge Plan Discharge Patient Disposition: Home Clinical Impression: Headache, Vertigo Condition: Stable Prescriptions: No Action (DME) auto-titrating c-pap 6-16cm See Rx Instructions .Route .MEDSUPPLY Qty: 1 0RF Rx Instructions: As directed methylprednisolone [Medrol (David)] 4 mg tablets,dose pack See Rx Instructions PO PER PKG DIR Qty: 21 0RF Rx Instructions: PO PER PKG DIR for 6 days magnesium oxide 400 mg magnesium tablet 800 mg PO .with evening meal Qty: 180 1RF bupropion HCl [Wellbutrin SR] 150 mg tablet sustained-release 12 hr 150 mg PO BID Qty: 60 0RF Farxiga 10 mg tablet 10 mg PO DAILY Qty: 30 0RF diclofenac sodium 75 mg tablet,delayed release (DR/EC) 75 mg PO BID PRN (Reason: pain) Qty: 60 0RF Rx Instructions: no nsaids with this escitalopram oxalate [Lexapro] 10 mg tablet 10 mg PO DAILY Qty: 30 0RF omeprazole 20 mg capsule,delayed release(DR/EC) See Rx Instructions .ROUTE .COMPLEX Qty: 60 0RF Dose Instruction: TAKE ONE CAPSULE BY MOUTH TWICE DAILY Rx Instructions: TAKE ONE CAPSULE BY MOUTH TWICE DAILY rosuvastatin [Crestor] 10 mg tablet 10 mg PO DAILY Qty: 30 0RF valsartan [Diovan] 160 mg tablet 160 mg PO DAILY Qty: 30 0RF tizanidine 4 mg tablet 4 mg PO BID Qty: 60 0RF Discharge Orders: Discharge ED (Routine); Ordered 06/15/25 Ordered By: Jeronimo Eric Referrals: Louise Rodarte FNP [Primary Care Provider, Family Practice] Discharge Diet: Advance as tolerated Discharge Activity: Increase activity as tolerated Patient Instructions: Vertigo (ED), Patient Portal & [facility]uniel Instructions Activity Restrictions/Additional Instructions: Your CT scan of the brain is reassuring with no evidence of stroke, intracranial bleed, or other abnormality. Your blood pressure and headache and dizziness has gotten significantly better and I do not suspect any other emergency requiring hospitalization. Please follow-up with your primary care doctor Print Language: South African Coding Level of Care Code ED Tester Wafer Substrate for Laurel Loredo
[2025-06-15 06:22] VITALS: BP 128/73; PULSE 83; RESP 15; O2SAT 97
== END 2025-06-15 06:19 | disposition home or self-care (01) ==
PROVIDERS: Emergency Provider Student in an Organized Health Care Education/Training Program; PCP Nurse Practitioner Family
DX: R51.9 Headache, unspecified (principal); R42 Dizziness and giddiness; E11.9 Type 2 diabetes mellitus without complications; I10 Essential (primary) hypertension; E78.2 Mixed hyperlipidemia
CPT/HCPCS: 36415; 70450; 80053; 81001; 85025; 99284

== ENCOUNTER → 2025-06-25 14:12 | Outpatient (BNVA) | payer SELFPAY | PROVIDERS: PCP Nurse Practitioner Family; Visit Provider Nurse Practitioner Family | DX: E11.65 Type 2 diabetes mellitus with hyperglycemia (principal) | CPT/HCPCS: 80053; 80061; 83036; 85025 ==